=== PATIENT | female | born 1935 | race Caucasian/White ===

== ENCOUNTER → 2017-03-02 | Outpatient (CLI) | payer MEDICARE, OTHER ==
[~2017-03-02] MED LIST: NORVASC10 MG PO
== END ==
LOC: LAB 13:48
PROVIDERS: Internal Medicine Nephrology
DX: N18.3 Chronic kidney disease, stage 3 (moderate) (principal)
CPT/HCPCS: 36415; 80053; 82043; 82570

== ENCOUNTER 2021-01-11 23:03 | Inpatient (IN) | payer MEDICARE, OTHER ==
[~2021-01-11] VITALS: Ht 160 cm; Wt 78.5 kg
[2021-01-11 23:33] LABS: HEMOGLOBIN 13.4 gm/dl (12.3-15.3); RED BLOOD COUNT 4.23 M/UL (4.00-5.10); WHITE BLOOD COUNT 10.6 K/UL (4.5-11.0)
[2021-01-11 23:56] LABS: BUN/CREATININE RATIO 25 (0-10)
[2021-01-12 03:23] LABS: HEMOGLOBIN 12.7 gm/dl (12.3-15.3); RED BLOOD COUNT 4.05 M/UL (4.00-5.10); WHITE BLOOD COUNT 9.9 K/UL (4.5-11.0)
[2021-01-12 03:43] LABS: BUN/CREATININE RATIO 28 (0-10)
[2021-01-12] MEDS ORDERED: CYANOCOBAL1000 MCG/1 INJ (10:04)
[2021-01-12] MEDS ORDERED: LEVOCETIRIZINE D5 MG PO (10:04)
[2021-01-12] MEDS ORDERED: AMLODIPINE BESY10 MG PO (10:04)
[2021-01-12] MEDS ORDERED: MYSOLINE TAB 5050 MG PO (10:05)
[2021-01-12] MEDS ORDERED: MYSOLINE50 MG PO (10:05)
[2021-01-12] MEDS ORDERED: NITRO-TIME6.5 MG PO (10:05)
[2021-01-12] MEDS ORDERED: VITAMIN D21250 MCG PO (10:06)
[2021-01-12] MEDS ORDERED: SYNTHROID125 MCG PO (10:06)
[2021-01-12] MEDS ORDERED: ESCITALOPRAM OX20 MG PO (10:07)
[2021-01-12] MEDS ORDERED: ESOMEPRAZOLE MA40 MG PO (10:07)
[2021-01-12] MEDS ORDERED: ATORVASTATIN CA10 MG PO (10:07)
[2021-01-12] MEDS ORDERED: IRBESARTAN300 MG PO (10:08)
[2021-01-12] MEDS ORDERED: HYDROCODON-ACE1 EAC2 PO (10:08)
[2021-01-13 03:23] LABS: HEMOGLOBIN 11.6 gm/dl (12.3-15.3); RED BLOOD COUNT 3.75 M/UL (4.00-5.10); WHITE BLOOD COUNT 7.7 K/UL (4.5-11.0)
[2021-01-14 03:25] LABS: HEMOGLOBIN 11.4 gm/dl (12.3-15.3); RED BLOOD COUNT 3.69 M/UL (4.00-5.10); WHITE BLOOD COUNT 7.2 K/UL (4.5-11.0)
[2021-01-14] MEDS ORDERED: ELIQUIS 2.5 MG2.5 MG PO (10:08)
[2021-01-14] MEDS ORDERED: LASIX20 MG PO (10:08)
--- NOTE | 2021-01-14 15:48 | NUR ---
PATIENT O2 SATS NOTED TO BE 88 % ON ROOM AIR.
== END 2021-01-16 14:55 | disposition home health service (06) | DRG 291 ==
LOC: ER1 23:03 → MED SURG 4 01-12 02:52 → CDU 01-12 02:52 → MED SURG 4 01-12 21:07
PROVIDERS: Family Medicine; ADMIT Internal Medicine
PROC: B24BZZZ Ultrasonography of Heart with Aorta (ICD-10-PCS; principal; 2021-01-12)
DX: I11.0 Hypertensive heart disease with heart failure (principal); J96.01 Acute respiratory failure with hypoxia; I50.33 Acute on chronic diastolic (congestive) heart failure; Z20.822 Contact with and (suspected) exposure to COVID-19; I48.91 Unspecified atrial fibrillation; I27.20 Pulmonary hypertension, unspecified; E78.5 Hyperlipidemia, unspecified; F41.9 Anxiety disorder, unspecified; F32.9 Major depressive disorder, single episode, unspecified; Z79.890 Hormone replacement therapy; Z79.899 Other long term (current) drug therapy
CPT/HCPCS: ECHO; 36415; 71045; 71046; 80048; 80053; 82550; 82553; 83735; 83874; 83880; 84132; 84439; 84443; 84484; 85007; 85025; 85027; 87040; 93005; 93306; 94760; 96374; 97110; 97116; 97116-GP-CQ; 97162; 97166; 97530; 97530-GP-CQ; 99285; J1940; J3475; U0002

== ENCOUNTER 2021-02-24 09:45 | Emergency (ER) | payer MEDICARE, OTHER ==
[~2021-02-24 09:45] MED LIST changes: +AMLODIPINE BESY10 MG PO; +ATORVASTATIN CA10 MG PO; +CYANOCOBAL1000 MCG/1 INJ; +ELIQUIS 2.5 MG2.5 MG PO; +ESCITALOPRAM OX20 MG PO; +ESOMEPRAZOLE MA40 MG PO; +HYDROCODON-ACE1 EAC2 PO; +IRBESARTAN300 MG PO; +LASIX20 MG PO; +LEVOCETIRIZINE D5 MG PO; +MYSOLINE TAB 5050 MG PO; +MYSOLINE50 MG PO; +NITRO-TIME6.5 MG PO; +SYNTHROID125 MCG PO; +VITAMIN D21250 MCG PO
[2021-02-24 10:38] LABS: RED BLOOD COUNT 3.86 M/UL (4.00-5.10); WHITE BLOOD COUNT 10.3 K/UL (4.5-11.0)
[2021-02-24 11:07] LABS: BUN/CREATININE RATIO 23 (0-10)
[2021-02-24] MEDS ORDERED: OMNICEF 300 MG300 MG PO (13:21)
[2021-02-24] MEDS ORDERED: ALBUTEROL2.5 MG/3 M INH (13:21)
[2021-02-24] MEDS ORDERED: AEROECLIPSE II1 EACH MC (13:21)
== END 2021-02-24 15:03 | disposition home or self-care (01) ==
LOC: ER1 09:45
PROVIDERS: Physician Assistant
DX: J18.9 Pneumonia, unspecified organism (principal); I50.9 Heart failure, unspecified; I11.0 Hypertensive heart disease with heart failure; E78.5 Hyperlipidemia, unspecified; Z20.822 Contact with and (suspected) exposure to COVID-19; I48.91 Unspecified atrial fibrillation; E03.9 Hypothyroidism, unspecified
CPT/HCPCS: 36600; 71045; 80053; 82550; 82553; 82803; 83874; 83880; 84484; 85025; 87040; 93005; 94664; 96374; 96375; 99285; J0692; J1940; U0002

== ENCOUNTER 2021-05-07 22:17 | Observation (INO) | payer MEDICARE, OTHER ==
[~2021-05-07] VITALS: Ht 157.5 cm; Wt 84.5 kg
[~2021-05-07 22:17] MED LIST changes: +AEROECLIPSE II1 EACH MC; +ALBUTEROL2.5 MG/3 M INH; +OMNICEF 300 MG300 MG PO
[2021-05-07 22:44] LABS: HEMOGLOBIN 11.1 gm/dl (12.3-15.3); RED BLOOD COUNT 3.58 M/UL (4.00-5.10); WHITE BLOOD COUNT 10.8 K/UL (4.5-11.0)
[2021-05-07 23:04] LABS: BUN/CREATININE RATIO 22 (0-10)
[2021-05-08] MEDS ORDERED: SYNTHROID100 MCG PO (08:50)
[2021-05-08] MEDS ORDERED: LASIX40 MG PO (08:52)
[2021-05-08] MEDS ORDERED: LASIX20 MG PO (08:52)
[2021-05-09 06:11] LABS: HEMOGLOBIN 11.2 gm/dl (12.3-15.3); RED BLOOD COUNT 3.68 M/UL (4.00-5.10)
[2021-05-09 06:14] LABS: WHITE BLOOD COUNT 7.8 K/UL (4.5-11.0)
[2021-05-09 06:56] LABS: BUN/CREATININE RATIO 25 (0-10)
== END 2021-05-09 18:12 | disposition home or self-care (01) ==
LOC: ER1 22:17 → CDU 05-08 03:21 → MED SURG 4 05-08 03:21
PROVIDERS: Family Medicine; Internal Medicine; ADMIT Internal Medicine
DX: I11.0 Hypertensive heart disease with heart failure (principal); I50.43 Acute on chronic combined systolic (congestive) and diastolic (congestive) heart failure; J96.21 Acute and chronic respiratory failure with hypoxia; I48.91 Unspecified atrial fibrillation; Z79.01 Long term (current) use of anticoagulants; K21.9 Gastro-esophageal reflux disease without esophagitis; F11.20 Opioid dependence, uncomplicated; E55.9 Vitamin D deficiency, unspecified; E53.8 Deficiency of other specified B group vitamins; J98.11 Atelectasis; M54.9 Dorsalgia, unspecified; G89.29 Other chronic pain; R91.8 Other nonspecific abnormal finding of lung field; J91.8 Pleural effusion in other conditions classified elsewhere; I27.20 Pulmonary hypertension, unspecified; Z20.822 Contact with and (suspected) exposure to COVID-19
CPT/HCPCS: 36415; 36600; 71045; 71046; 80053; 82550; 82553; 82803; 83735; 83874; 83880; 84484; 85025; 93005; 94640; 94664; 94760; 96374; 96376; 99285; G0378; J1940; U0002

== ENCOUNTER → 2021-05-17 | Outpatient (CLI) | payer MEDICARE, OTHER ==
[~2021-05-17] MED LIST changes: +LASIX40 MG PO; +NITROSTAT 0.40.4 MG SL; +SYNTHROID100 MCG PO
== END ==
LOC: RAD 13:47
DX: S99.919A Unspecified injury of unspecified ankle, initial encounter (principal)
CPT/HCPCS: 73600

== ENCOUNTER 2021-06-17 01:31 | Emergency (ER) | payer MEDICARE, OTHER ==
[~2021-06-17 01:31] MED LIST changes: -NITROSTAT 0.40.4 MG SL
[2021-06-17 01:48] LABS: HEMOGLOBIN 11.2 gm/dl (12.3-15.3); RED BLOOD COUNT 3.6 M/UL (4.00-5.10); WHITE BLOOD COUNT 14.3 K/UL (4.5-11.0)
[2021-06-17 02:07] LABS: BUN/CREATININE RATIO 20 (0-10)
[2021-06-17] MEDS ORDERED: NITROSTAT 0.40.4 MG SL (06:00)
== END 2021-06-17 06:10 | disposition home or self-care (01) ==
LOC: ER1 01:31
PROVIDERS: Family Medicine
DX: R07.2 Precordial pain (principal); I11.0 Hypertensive heart disease with heart failure; I50.9 Heart failure, unspecified; K21.9 Gastro-esophageal reflux disease without esophagitis; I48.91 Unspecified atrial fibrillation; Z90.89 Acquired absence of other organs
CPT/HCPCS: 71045; 80053; 82550; 82553; 83874; 83880; 84484; 85025; 93005; 99285